=== PATIENT | male | born 1995 | race Caucasian/White ===

== ENCOUNTER 2018-05-26 21:19 | Emergency (ER) | payer BC ==
[2018-05-26] MEDS ORDERED: FAMOTIDINE/PF 20 MG/2 ML VIAL IVP ONE (21:26)
[2018-05-26] MEDS ORDERED: diphenhydrAMINE HCL 50 MG/ML VIAL IVP ONE ×2 (21:26→22:04)
[2018-05-26] MEDS ORDERED: ONDANSETRON HCL/PF 4 MG/ 2ML VIAL IVP ONE ×2 (21:26→21:37)
[2018-05-26] MEDS ORDERED: methylPREDNISolone SOD SUCC 125 MG/2 ML VIAL IVP ONE (21:26)
[2018-05-26] MEDS ORDERED: 0.9 % SODIUM CHLORIDE 1,000 ML IV ONE (21:30)
[2018-05-26] MEDS ORDERED: SODIUM CHLORIDE 3 ML VIAL.NEB IH ONE (21:44)
[2018-05-26] MEDS ORDERED: RACEPINEPHRINE HCL 1 EACH VIAL.NEB NEB ONE ×2 (21:44→21:45)
[2018-05-26] MEDS ORDERED: PROMETHAZINE HCL 12.5 MG in 0.9 % SODIUM CHLORIDE 50 ML IV ONE (21:50)
[2018-05-26] MEDS ORDERED: PROMETHAZINE HCL 25 MG/ML VIAL ONE (21:51)
[2018-05-26 22:00] LABS: eGFR (Non-African) > 60
[2018-05-26] MEDS ORDERED: LORATADINE 10 MG TABLET PO ONE (22:39)
--- NOTE | 2018-05-26 22:41 | ED Physician Documentation ---
Allergy Symptoms - HISTORIAN Historian: patient - HPI Stated Complaint: Allergic reaction Chief Complaint: Allergic Reaction Onset: minutes Duration: continues in ED Swelling: tongue, throat Shortness of Breath: moderate Trouble Swallowing/ Speaking: moderate Identified Cause: yes Context: Food Exposure: nuts Further Comments: yes (23 year old male patient presents with complaint of SOB, tongue swelling and allergic reaction. Patient states he ate a peanut butter cookie by accident; does not have his epi pen with him. Severe allergy to peanuts. On arrival Sat 98%, patient anxious, RR 24-26) - ROS EYES/ENT: other (nasal drainage) CVS/RESP: none GI/: none CONST: none MS/SKIN/LYMPH: none NEURO/PSYCH: none - PAST HX Prior Allergic Reaction: anaphylaxis Medical History: none Allergies/Adverse Reactions: Allergies Allergy/AdvReac Type Severity Reaction Status Date / Time peanut Allergy Severe Anaphylaxis Verified 05/26/18 21:50 shellfish derived Allergy Severe Anaphylaxis Verified 05/26/18 21:50 - SOCIAL HX Smoking History: non-smoker - FAMILY HX Family History: No - VITAL SIGNS Vital Signs: Vital Signs Temp Pulse Resp BP Pulse Ox 99.2 F 77 20 146/81 93 05/26/18 21:20 05/26/18 22:31 05/26/18 22:31 05/26/18 22:31 05/26/18 22:31 - REVIEWED ASSESSMENTS Nursing Assessment Reviewed: Yes Vitals Reviewed: Yes Progress - Progress Progress: 5 Stridor noted; racemic epi ordered. 2155 Patient continues to vomit after 2 doses of zofran; promethazine given IV 2240 Patient states he feels better; ambulatory in ER, able to keep down POs. Reviewed discharge instructions, patient verbalized understanding. ED Results Lab/Radiology - Lab Results Lab Results: Lab Results 05/26/18 21:40 Sodium 135 mmol/L L mmol/L (136-145) Potassium 3.6 mmol/L mmol/L (3.5-5.1) Chloride 109 mmol/L H mmol/L (98-107) Carbon Dioxide 26 mmol/L mmol/L (22-30) BUN 18 mg/dL mg/dL (9-20) Creatinine 1.20 mg/dL mg/dL (0.66-1.25) Estimated Creat Clear 117 Est GFR ( Amer) > 60 (60 - ) Est GFR (Non-Af Amer) > 60 (60 - ) Glucose 90 mg/dL mg/dL (74-106) Calcium 8.5 mg/dL mg/dL (8.4-10.2) Total Bilirubin 0.2 mg/dL mg/dL (0.2-1.3) AST 34 U/L U/L (15-46) ALT 43 U/L U/L (13-69) Alkaline Phosphatase 106 U/L U/L (38-126) Total Protein 7.8 g/dL g/dL (6.3-8.2) Albumin 4.4 g/dL g/dL (3.5-5.0) - Orders Orders: ED Orders Category Date Time Status Place IV Lock 1T Care 05/26/18 21:27 Active CBC REF Stat Lab 05/26/18 21:40 Received CBC/PLATELET/DIFF Stat Lab 05/26/18 21:40 Received CMP Stat Lab 05/26/18 21:40 Completed 0.9 % Sodium Chloride [Normal Saline] 1,000 ml Med 05/26/18 21:30 Discontinued IV NOW Famotidine/Pf [Pepcid] Med 05/26/18 21:26 Discontinued 20 mg IVP NOW ONE Loratadine [Claritin] Med 05/26/18 22:39 Once 10 mg PO NOW ONE Ondansetron HCl/Pf [Zofran 4 mg/2 ml] Med 05/26/18 21:26 Discontinued 4 mg IVP NOW ONE Ondansetron HCl/Pf [Zofran 4 mg/2 ml] Med 05/26/18 21:37 Discontinued 4 mg IVP NOW ONE Promethazine HCl [Phenergan] Med 05/26/18 21:51 Discontinued 25 mg .ROUTE .STK-MED ONE Promethazine HCl [Phenergan] 12.5 mg Med 05/26/18 21:50 Discontinued 0.9 % Sodium Chloride [Sodium Chloride] 50 ml IV NOW Racepinephrine HCl [S-2] Med 05/26/18 21:44 Discontinued 1 each NEB .STK-MED ONE Racepinephrine HCl [S-2] Med 05/26/18 21:45 Discontinued 1 each NEB NOW ONE Sodium Chloride For Inhalation [Dey] Med 05/26/18 21:44 Discontinued 3 ml IH .STK-MED ONE diphenhydrAMINE HCL [Benadryl] Med 05/26/18 22:04 Discontinued 25 mg IVP NOW ONE diphenhydrAMINE HCL [Benadryl] Med 05/26/18 21:26 Discontinued 50 mg IVP NOW ONE methylPREDNISolone SOD SUCC [Solu-MEDROL] Med 05/26/18 21:26 Discontinued 125 mg IVP NOW ONE Allergy Symptons Exam - EXAM General Appearance: moderate distress HEENT: ENT nml inspection, pharynx nml, voice nml Skin: no rash, nml color, warm Respiratory: no resp. distress, breath sounds nml CVS: reg rate & rhythm, heart sounds normal, equal pulses, no murmur, no gallop, PMI nml, no JVD, no friction rub, 24 Abdomen: non-tender, no organomegaly, nml bowel sounds, no distention Neuro: oriented X3, CN's nml as tested, motor nml, sensation nml, mood/affect nml Discharge Clincal Impression: Allergic reaction Qualifiers: Encounter type: initial encounter Qualified Code(s): T78.40XA - Allergy, unspecified, initial encounter Referrals: Primary Doctor,No [Primary Care Provider] - 2 Days Additional Instructions: Continue Benadryl 25-50mg by mouth every 6 hours until symptoms resolve Take either Claritan, Allergra, or Zyrtec daily until symptoms resolve. Start Zantac 2 tabs twice a day. You may stop taking 2 days after symptoms resolve. See your primary doctor or return to the ER if you have increase shortness of breath or difficulty breathing. Keep your epi pen with you at all times Condition: Stable Disposition: 01 HOME, SELF-CARE Decision to Admit: NO Decision Time: 22:41
[2018-05-26 23:05] VITALS: BP 137/73
[2018-05-26 23:11] LABS: BASO % 0.8 % (0.0-1.5); LYMPH ABS # 2.69 thou/uL (0.60-4.00); MCH. 29.7 pg (28.0-34.0); MONOCYTE % 5.9 % (0.0-11.0); MONOCYTE ABS # 0.44 thou/uL (0.00-0.90); PLATELET COUNT 243 thou/uL (130-400)
== END 2018-05-26 23:00 | disposition home or self-care (01) ==
LOC: ED 21:20
DX: R06.02 Shortness of breath (principal); T78.40XA Allergy, unspecified, initial encounter; X58.XXXA Exposure to other specified factors, initial encounter; Z91.010 Allergy to peanuts; Y92.9 Unspecified place or not applicable; Y93.9 Activity, unspecified; Y99.9 Unspecified external cause status; R22.1 Localized swelling, mass and lump, neck
CPT/HCPCS: 80053; 85025; J1200; J2405; J2550; J2930; J7030; 94640; 96365; 96367; 96375; 96376; S0028; S1016